=== PATIENT | female | born 1985 | race Hispanic/Latino ===

== ENCOUNTER → 2024-06-02 07:51 | Outpatient (REF) | payer OTHER, SELFPAY | LOC: RAD 07:51 | PROVIDERS: ATTENDING PHYSICIAN Family Medicine | DX: R05.1 Acute cough (principal); R06.2 Wheezing | CPT/HCPCS: 71046 ==

== ENCOUNTER 2024-08-07 21:53 | Emergency (ER) | payer OTHER, SELFPAY ==
[2024-08-07 21:58] VITALS: BP 158/91
[2024-08-08] MEDS: MOTRIN 600 MG PO (02:37)
--- NOTE | 2024-08-08 04:53 | ED.GENMED ---
History of Present Illness
General
Chief Complaint: Skin Problem
Source: patient
Time Seen by Provider: 08/08/24 04:34
History of Present Illness
History of Present Illness:
38-year-old female presents to the emergency room complaining of injury to her right big toe. Patient states she was moving a coffee table when her toenail became caught on something and was partially avulsed. No other injuries.
Phy Exam
Physical Exam
Physical Exam:
General: Awake, Alert, Oriented X3. No acute distress.
Vitals: unremarkable
Head: Atraumatic
Eyes: Pupils equal, EOMI
Throat: Airway intact, no exudates
Neuro: Nonfocal
Skin: Warm, dry, no rash
Extremities: pulses equal b/l, no edema. Right great toenail partially avulsed.
Course
Orders/Labs/Results
Orders:
Orders
08/08/24 02:26
Ibuprofen [Motrin] 600 mg .ROUTE .STK-MED ONE
08/08/24 02:36
Ibuprofen [Motrin] 600 mg PO NOW STA
Vital Signs
Initial and Last Documented VS:
Initial Vital Signs
Pulse Resp BP Pulse Ox
85 20 158/91 97
08/07/24 21:58 08/07/24 21:58 08/07/24 21:58 08/07/24 21:58
Last Documented Vital Signs
Temp Pulse Resp BP Pulse Ox
98.6 F 78 16 126/77 98
08/08/24 04:07 08/08/24 05:25 08/08/24 05:25 08/08/24 05:25 08/08/24 05:25
Procedures
Digital Block
Location of injection for digital block: base of digit
Indiction for Digital Block: other (Removal of nail)
Was sensory exam normal prior to exam?: intack pin prick
Type of anesthesia: 1% Lidocaine w/o EPI
Complications: none- good anesthesia
MDM/Problems Addressed
Differential Diagnosis Includes:
Nail avulsion, nailbed laceration
MDM/Problems Addressed:
Patient presents with almost complete avulsion of the great toenail on the right. Digital block was performed. Nail was fully removed using some blunt dissection and traction. No nailbed laceration noted. Vaseline gauze placed into the nailbed
to prevent fusion. Recommend follow-up podiatry..
*Pulse Oximetry
Patient hypoxic: no
*Critical Care Note
Total Time (30-74mins, 75-104mins- exclusive of procedures): Not Applicable
ED Attending Note
-
Portions of this chart may have been created with voice recognition software.� Occasional wrong word or��sound alike� substitutions may have occurred due to the inherent limitations of voice recognition software.
Discharge Plan
Departure
Patient Disposition: Home (Routine Discharge)
Date of Disposition: 08/08/24
Time of Disposition: 05:41
Patient with high blood pressure during this ER visit?: Yes
Condition: Good
Discharge Problem:
Avulsed toenail
Referrals:
Mya Woody DPM [Active] -
Kalpesh Aguila DO [Family Provider] -
Activity Restrictions/Additional Instructions:
Please keep the dressing in place for the next 48 hours. Follow up with podiatry....Dr. Woody.
Interventions
Interventions:
*Risk Screen - Suicide Last Done: 08/08/24 03:50
*General Assessment Last Done: 08/07/24 21:58
*Neglect/Abuse Screening Last Done: 08/08/24 03:50
ED- Fall Risk Assessment Last Done: 08/08/24 03:50
*ED COVID-19 Vaccine History Last Done: 08/08/24 03:50
*Nursing Disposition Last Done: 08/08/24 05:25
ED-Skin Assessment Last Done: 08/08/24 05:20
Discharge Date and Time
Discharge Date/Time: 08/08/24 05:25
Print Language: INDONESIAN
[2024-08-08 05:25] VITALS: BP 126/77
== END 2024-08-08 05:25 | disposition home or self-care (01) ==
LOC: EMR 21:53
PROVIDERS: EMERGENCY PHYSICIAN Emergency Medicine; FAMILY PHYSICIAN Family Medicine
DX: S91.201A Unspecified open wound of right great toe with damage to nail, initial encounter (principal); W23.0XXA Caught, crushed, jammed, or pinched between moving objects, initial encounter
CPT/HCPCS: 11730; 99282

== ENCOUNTER → 2024-12-13 09:49 | Outpatient (REF) | payer OTHER, SELFPAY | LOC: RAD 09:49 | PROVIDERS: ATTENDING PHYSICIAN Nurse Practitioner Family | DX: M25.511 Pain in right shoulder (principal) | CPT/HCPCS: 73030 ==